=== PATIENT | male | born 1985 | race Caucasian/White ===

== ENCOUNTER 2020-07-08 01:38 | Inpatient (IN) | payer BC ==
[2020-07-08] VITALS (8 sets, daily range): BP systolic 92–118; BP diastolic 47–91; Ht 188 cm; Wt 86.6 kg
[~2020-07-08] VITALS: Ht 188 cm; Wt 86.6 kg
--- NOTE | 2020-07-08 01:40 | NUR ---
EDP AND RT AT BEDSIDE. PT INTUBATED WITH 7.5 ETT, 25 @ LIP. ETT SECURED BY RESPIRATORY.
--- NOTE | 2020-07-08 02:00 | NUR ---
RESTRAINTS PLACED ON PT PER EDP ORDER TO PREVENT SELF-EXTUBATION. SEE RESTRAINT PAPERWORK. SIDERAILS X2, BED LOW. PT REMAINS ON MSWS.
[2020-07-08 02:18] LABS: BASOPHILS 0.6 % (0-2); EOSINOPHILS 3.7 % (0-7); HEMATOCRIT 39.4 % (42.0-54.0); HEMOGLOBIN 13.3 g/dL (13.5-17.5); IMMATURE GRANULOCYTES 0.3 % (0-5); LYMPHOCYTE ABS# 1.96 10x3/uL (1.32-3.57); MCH 30.5 pg (26.0-34.0); MCHC 33.8 g/dL (31.0-37.0); MCV 90.4 fL (80.0-100.0); MEAN PLATELET VOLUME 9.4 fL (7.4-10.4); NEUTROPHIL ABS# 4.39 10x3/uL (1.78-5.38); NEUTROPHILS 60.4 % (40-80); PLATELET COUNT 247 10x3/uL (130-400); RBC 4.36 10x6/uL (4.20-6.10); RDW 14.1 % (11.5-14.5); WBC 7.3 10x3/uL (4.8-10.8)
[2020-07-08 02:37] LABS: CALC OSMOLALITY 285 mosm/kg (275-300); CALCIUM 8.2 mg/dL (8.5-10.1); CARBON DIOXIDE 28.7 mmol/L (21.0-32.0); CHLORIDE - SERUM 103 mmol/L (98-107); CREATININE - SERUM 0.9 mg/dL (0.6-1.3); GLUCOSE 114 mg/dL (74-106); POTASSIUM - SERUM 3.3 mmol/L (3.5-5.1); SODIUM 142 mmol/L (136-145); UREA NITROGEN 19 mg/dL (7-18); eGFR NON AFRICAN AMERICAN > 90 mL/min (90-120)
[2020-07-08 02:43] LABS: APTT 29.1 SECONDS (22.8-39.4); PROTIME 14.1 SECONDS (11.6-15.0)
[2020-07-08 02:44] LABS: D-DIMER-QUANTITATIVE < 0.27 ug/mLFEU (0.20-0.54)
[2020-07-08 02:49] LABS: UDS - AMPHET POSITIVE QUAL (NEGATIVE); UDS - BARB NEGATIVE QUAL (NEGATIVE); UDS - BENZO POSITIVE QUAL (NEGATIVE); UDS - COCAINE NEGATIVE QUAL (NEGATIVE); UDS - OPIATE NEGATIVE QUAL (NEGATIVE); UDS - PCP NEGATIVE QUAL (NEGATIVE); UDS - THC NEGATIVE QUAL (NEGATIVE)
[2020-07-08 02:53] LABS: BILIRUBIN NEGATIVE (NEGATIVE); KETONE NEGATIVE (NEGATIVE); NITRITE NEGATIVE (NEGATIVE); UROBILINOGEN NORMAL mg/dL (< 2)
[2020-07-08 02:54] LABS: BACTERIA MODERATE HPF (NONE SEEN); SQUAMOUS EPITHELIAL 0-5 HPF (0-4); WHITE CELLS - URINE 0-5 HPF (0-1)
[2020-07-08 02:56] LABS: ALBUMIN 3.4 g/dL (3.4-5.0); ALKALINE PHOSPHATASE 98 U/L (30-120); ALT (SGPT) 46 U/L (10-68); BILIRUBIN - TOTAL 0.44 mg/dL (0.2-1.3); CKMB 1.4 U/L (0.0-3.6); CREATINE KINASE 125 UL (21-232); MAGNESIUM - SERUM 2.1 mg/dL (1.8-2.4); PRO BNP 10 pg/mL (0-125); PROTEIN - SERUM 6.7 g/dL (6.4-8.2); TROPONIN-I < 0.017 ng/mL (0.000-0.060)
--- NOTE | 2020-07-08 03:15 | NUR ---
RECEIVED PT FROM THE ER TO ROOM 2310. PT IS INTUBATED, SEDATED AND RESTRAINED. ATTACHED PT TO ICU MONTIORS. ADMISSION ASSESSMENT COMPLETED. UNABLE TO OBTAIN ANSWERS TO ADMISSION HX AND MED REC AT THIS TIME DUE TO NO FAMILY PRESENT AND PT BEING SEDATED. WILL READDRESS IN FUTURE. NO S/S OF DISTRESS NOTED. WILL CONTINUE TO MONITOR.
[2020-07-08 09:13] LABS: CKMB 2.3 U/L (0.0-3.6); CREATINE KINASE 182 UL (21-232)
[2020-07-08 09:14] LABS: TROPONIN-I < 0.017 ng/mL (0.000-0.060)
--- NOTE | 2020-07-08 09:29 | NUR ---
DR LUU HERE AT BS. PT EXTUBATED TO 2LNC. DR MAYERS HERE AT BS.
--- NOTE | 2020-07-08 09:45 | NUR ---
FC DCD. URINAL PROVIDED. PT STATES THAT HE DOES HAVE HX OF SEIZURE. 500MG KEPPRA BID IS WHAT HE REPORTS.
--- NOTE | 2020-07-08 10:29 | NUR ---
DISCUSSED POC WITH PT. PT STATES"AM GOING HOME". EXPLANED RISK AND BENEFITS. DR MAYERS BACK IN ROOM AND EXPLANED RISK AND BENEFITS. RE: SEIZURE. PT STATES THAT HE IS GOING TO GO HOME AMA. REPORTED TO UPSETTERRomeo COOLEY IN ROOM AND DISCUSSED RISK AND AMA PAPERS.
--- NOTE | 2020-07-08 10:34 | NUR ---
PT SIGNED AMA PAPERWORK. DR MAYERS WROTE RX FOR GRETCHEN.
== END 2020-07-08 10:37 | disposition left against medical advice (07) | DRG 917 ==
LOC: D.ER 01:38 → EDBD 01:38 → D.ICU 02:14
PROVIDERS: Family Medicine; ADMIT Family Medicine; ATTEND Family Medicine
PROC: 0BH17EZ Insertion of Endotracheal Airway into Trachea, Via Natural or Artificial Opening (ICD-10-PCS; principal; 2020-07-08)
PROC: 5A1935Z Respiratory Ventilation, Less than 24 Consecutive Hours (ICD-10-PCS; 2020-07-08)
DX: T65.91XA Toxic effect of unspecified substance, accidental (unintentional), initial encounter (principal); J96.00 Acute respiratory failure, unspecified whether with hypoxia or hypercapnia; G92 Toxic encephalopathy; R56.9 Unspecified convulsions; D64.9 Anemia, unspecified; E87.6 Hypokalemia; Z53.29 Procedure and treatment not carried out because of patient's decision for other reasons